=== PATIENT | male | born 1990 | race Caucasian/White ===

== ENCOUNTER 2024-11-30 09:24 | Emergency (ER) | payer OTHER ==
[2024-11-30] MEDS ORDERED: Ondansetron PF 4 MG/2 ML Vial ONE (09:28)
[2024-11-30] MEDS ORDERED: Ketorolac Tromethamine 30 MG (1 mL) VIAL ONE (09:37)
[2024-11-30 09:43] LABS: #Basophils 0.04 10x3/uL (0.0-0.2); #Eosinophils 0.05 10x3/uL (0.0-0.7); #Monocytes 0.71 10x3/uL (0.11-0.59); #Neutrophils 7.33 10x3/uL (1.40-6.50); %Basophils 0.4 % (0.0-1.0); %Eosinophils 0.4 % (0.0-10.0); %Lymphocytes 26.7 % (21.0-51.0); %Monocytes 6.4 % (0.0-10.0); %Neutrophils 65.7 % (42.0-75.0); Hematocrit 48.5 % (42.0-52.0); Hemoglobin 16.4 g/dL (14.0-18.0); Mean Corpuscular Hemoglobin 28.9 pg (27.0-31.0); Mean Corpuscular Volume 85.4 fL (78.0-98.0); Platelet Count 289 10x3/uL (130-400); Red Blood Cell (RBC) Count 5.68 mill/uL (4.70-6.10); White Blood Cell (WBC) Count 11.14 10x3/uL (4.8-10.8)
[2024-11-30 10:06] LABS: ALT (SGPT) 17 U/L (Less than 45); AST (SGOT) 22 U/L (11-34); Albumin 4.4 g/dL (3.1-4.5); Alkaline Phosphatase 136 U/L (40-110); Anion Gap 16 mmol/L (10-20); BUN (Urea Nitrogen) 16 mg/dL (8.9-20.6); Bilirubin, Total 0.5 mg/dL (0.3-1.2); Calc. Creatinine Clearance 0 mL/min (70-130); Calcium 9.4 mg/dL (7.8-10.44); Carbon Dioxide 21 mmol/L (22-29); Chloride 107 mmol/L (98-107); Globulin 3.1 g/dL (2.4-3.5); Glucose 146 mg/dL (70-105); Lipase 40 U/L (8-78); Potassium 3.8 mmol/L (3.5-5.1); Sodium 140 mmol/L (136-145)
[2024-11-30 11:19] LABS: CAUTI Indications for Culture Pelvic or flank pain; Glucose, Urine (Dipstick) Normal (Negative); Leukocyte Negative Leu/uL (Negative); Protein, Urine (Dipstick) 20 mg/dL (Neg-Trace); RBC/HPF 21-50 HPF (0-3); WBC/HPF 0-3 HPF (0-3); Yeast-Budding Rare HPF (None Seen)
[2024-11-30 11:30] LABS: Specific Gravity, Urine Greater than 1.050 (1.002-1.036)
[2024-11-30 11:33] LABS: Bacteria/HPF Rare-Few HPF (None Seen)
[2024-11-30 11:34] LABS: Urine Culture Reflex No No
[2024-11-30] MEDS ORDERED: Fluconazole 100 MG TAB ONE (11:47)
[2024-11-30] MEDS ORDERED: Iopamidol-370 76% 500 ML MDV (1 ML CHARGE) ONE (13:17)
== END 2024-11-30 12:24 | disposition home or self-care (01) ==
LOC: ERS 09:24
DX: N13.2 Hydronephrosis with renal and ureteral calculous obstruction (principal)
CPT/HCPCS: 36415; 74177; 80053; 81001; 83690; 85025; 96361; 96374; 96375; J1885; J2405; Q9967